=== PATIENT | female | born 1990 | race Caucasian/White ===

== ENCOUNTER 2018-01-12 17:10 | Emergency (ER) | payer SELFPAY ==
--- NOTE | 2018-01-12 17:10 | DT_ITS ---
This patient was seen during an EMR downtime January 07, 2018 - January 14, 2018. This patient may have a combination of paper and electronic documentation or all paper documentation. All documentation is viewable within the e-chart portion of [facility] for each patient visit.
== END 2018-01-12 18:17 | disposition home or self-care (01) ==
PROVIDERS: Emergency Provider Emergency Medicine
DX: G51.0 Bell's palsy (principal)
CPT/HCPCS: 99283

== ENCOUNTER → 2018-10-22 14:08 | Outpatient (CLI) | payer OTHER, SELFPAY ==
[2018-10-22 18:35] LABS: Chlamydia Trachomatis by PCR Negative (Negative); Neisserai gonorrhoeae by PCR Negative (Negative); Probe Check PASS; Sample Adequacy Control PASS; Specimen Processing Control PASS
[2018-10-29 15:27] LABS: HPV HC, High Risk Negative (Negative); HPV Reflexed? YES, CHARGE PATIENT
== END ==
PROVIDERS: Visit Provider Obstetrics & Gynecology
DX: Z12.4 Encounter for screening for malignant neoplasm of cervix (principal); Z11.3 Encounter for screening for infections with a predominantly sexual mode of transmission
CPT/HCPCS: 87491; 87591; 87624; 88175; G0145

== ENCOUNTER → 2018-11-19 09:38 | Outpatient (CLI) | payer SELFPAY ==
[2018-11-19 11:00] LABS: Color, Urine Yellow (Yellow); Glucose, Dipstick Normal (Normal); Ketone-Dipstick Negative (Negative); Leukocyte Esterase-Dipstick Negative /ul (Negative); Nitrite-Dipstick Negative (Negative); Occult Blood-Urine Negative /ul (Negative); Protein-Dipstick Negative (Negative); Urine Bilirubin Dipstick Negative (Negative); Urine Clarity Cloudy (Clear); Urine Urobilinogen Normal (Normal)
[2018-11-19 14:03] LABS: Absolute Neutrophil Count 4.6 X10^3/uL (2.0-7.7); Basophil# 0.03 X10^3/uL; Basophil% 0.5 % (0-1); Eosinophil# 0.04 X10^3/uL; Eosinophils% 0.6 % (0-5); Hematocrit 35.6 % (37-47); Hemoglobin 11.9 g/dl (12.0-15.0); Lymphocyte % 20.4 % (19-41); Mean Corp Hgb Conc 33.4 g/gl (32-36); Mean Corpuscular Hgb 31.1 pg (27.0-32.0); Monocyte# 0.38 X10^3/uL; Neutrophil # 4.61 X10^3/uL (2.7-7.7); Neutrophil % 72.3 % (47-70); Platelet Count 211 K/mm3 (150-450); RBC Distribution Width CV 13.3 % (11.6-14.6); RBC Distribution Width SD 44.8 fl (35.1-43.9); Red Blood Count 3.83 M/mm3 (4.2-5.4); White Blood Count 6.4 K/mm3 (4.4-11.0)
[2018-11-19 14:04] LABS: POSITIVE COUNT NO; POSITIVE DIFFERENTIAL NO; POSITIVE MORPHOLOGY NO
[2018-11-19 14:15] LABS: Thyroid Stim Hormone (TSH) 3.19 uIU/mL (0.358-3.74)
[2018-11-19 15:06] LABS: HIV - WCH Non-Reactive (Nonreactive); Rubella IgG > 500.0 IU/mL
[2018-11-20 11:39] LABS: HEPATITIS B SURFACE AG Negative (Negative); Hep C Antibodies <0.1 s/co ratio (0.0-0.9)
[2018-11-22 01:43] LABS: Prenatal RPR NONREACTIVE (NONREACTIVE)
== END ==
PROVIDERS: Visit Provider Obstetrics & Gynecology
DX: Z34.82 Encounter for supervision of other normal pregnancy, second trimester (principal)
CPT/HCPCS: 36415; 81002; 84443; 85025; 86703; 86762; 86803; 87340

== ENCOUNTER → 2019-02-04 08:59 | Outpatient (CLI) | payer SELFPAY ==
[2019-02-04 10:39] LABS: Glucose Challenge Gest 1H 50g 112 mg/dL (70-140); Hematocrit 33.7 % (37-47); Hemoglobin 11.3 g/dl (12.0-15.0); Mean Corp Hgb Conc 33.5 g/gl (32-36); Mean Corpuscular Hgb 31.9 pg (27.0-32.0); Mean Corpuscular Volume 95.2 fL (81-99); Mean Platelet Vol. 8.7 fl (6.2-12.0); Platelet Count 196 K/mm3 (150-450); RBC Distribution Width CV 12.7 % (11.6-14.6); RBC Distribution Width SD 43.8 fl (35.1-43.9); Red Blood Count 3.54 M/mm3 (4.2-5.4); White Blood Count 6.4 K/mm3 (4.4-11.0)
[2019-02-04 10:40] LABS: Scan Indicated on CBC? Y/N NO
== END ==
PROVIDERS: Visit Provider Obstetrics & Gynecology
DX: Z34.83 Encounter for supervision of other normal pregnancy, third trimester (principal)
CPT/HCPCS: 36415; 82950; 85027

== ENCOUNTER → 2019-04-02 11:48 | Outpatient (CLI) | payer SELFPAY ==
[2016-08-23 09:41] VITALS: BMI 27.8
== END ==
PROVIDERS: Visit Provider Obstetrics & Gynecology
DX: Z36.85 Encounter for antenatal screening for Streptococcus B (principal)
CPT/HCPCS: 87077; 87081

== ENCOUNTER 2019-04-14 00:35 | Inpatient (IN) | payer SELFPAY ==
[2019-04-14] MEDS: Lactated Ringers 1,000 ML 50 ML IV (01:30)
[2019-04-14 01:48] LABS: Absolute Lymphocyte Count 1.67 X10^3/uL (0.83-4.51); Absolute Neutrophil Count 5.3 X10^3/uL (2.0-7.7); Basophil# 0.03 X10^3/uL; Basophil% 0.4 % (0-1); Eosinophil# 0.05 X10^3/uL; Eosinophils% 0.6 % (0-5); Hematocrit 36.5 % (37-47); Hemoglobin 12.2 g/dL (12.0-15.0); Lymphocyte # 1.67 X10^3/ul (4.0); Lymphocyte % 21.5 % (19-41); Mean Corp Hgb Conc 33.4 g/dL (32-36); Mean Corpuscular Hgb 32.3 pg (27.0-32.0); Mean Corpuscular Volume 96.6 fL (81-99); Mean Platelet Vol. 8.9 fl (6.2-12.0); Monocyte# 0.72 X10^3/uL; Monocyte% 9.3 % (0-10); NRBC Flagged by Analyzer 0 % (0-5); Neutrophil # 5.25 X10^3/uL (2.7-7.7); Neutrophil % 67.8 % (47-70); Platelet Count 156 K/mm3 (150-450); RBC Distribution Width CV 12.5 % (11.6-14.6); RBC Distribution Width SD 43.7 fl (35.1-43.9); Red Blood Count 3.78 M/mm3 (4.2-5.4); White Blood Count 7.8 K/mm3 (4.4-11.0)
[2019-04-14 01:58] VITALS: BMI 24.8
[2019-04-14] MEDS: Oxytocin 30 units/NS 500 ml 30 UNITS/500 ML IV.SOLN 334 UNITS IV (02:45)
--- NOTE | 2019-04-14 02:57 | HP.PCM_ITS ---
History and Physical Date of Admission: 04/14/19 History of Present : This is a 28-year-old patient who presents for her third vaginal delivery in active labor. care has been uneventful. AGE: 28 PARITY(FPAMETL): 2 0 0 0 0 0 2 WKS GEST: 39 wks + 1 days RACHAEL: 04/20/19 Ped: [facility]. 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 decline AFP and CF tests. ASCUS Pap but HPV NEG at NOB appt Advised WNL. Repeat in 1 yr Antepartum Flow Sheet Highlights: ELB Apr 1 38 172 122/66 - - 37 JMW Mar 06 37 171 110/70 - - 37 V 2 50 -2 ELB Mar 1 35 170 110/68 tr - 35 - ELB Feb 2 33 169 120/68 - - 33 - ELB Feb 2 31 166 110/66 - - 30 - ELB Feb 2 29 166 106/62 - - 29 - ELB Jan 3 26 162 110/52 tr - 25 - ELB 17 December 4 22 159 120/62 - - 21 - ELB Nov 4 18 157 100/64 - - - V SHORT ANTEPARTUM NOTE(S): May 03Mar feeling well. GBS and LARC done. Mar doing well, GBS next visit, reviewed FM Feb see note Feb feeling well. Feb 13Jan glucola given, reviewed FM 17 December feeling well. Nov feeling well. LONG ANTEPARTUM NOTES: Apr H&P taken to OB. tkg Apr CORRECTION: GROUP B STREP NEGATIVE Doing well and advised that GBS negative. She has some mild cramping. Declines cervix check today. RTO in 1 wk for PNV. EB 03 Sep Good FM. Some cramping, no ctx's. Long dip ua 1.005, ph 7, rest is negative. Declines vag exam today. She is pre-registered. kbm 03 Sep Feeling well; reports active FM; denies UCs, VB, LOF; discussed warning signs, s/s labor, whebn to call, when to come in; RTO 1 week(s)for PNV 01 Sep GBS positive EB 31 Feb Lynette is being seen for PNV. Pt believes she has possible yeast infection for about a week now. She has had itchiness and burning in vagina. Long dip shows +leuks, trs protein, 7.0 pH, 1.010 specific gravity and all others negative. AM 31 Cecil Possible yeast with irritation for last week or so. WET PREP: negative for yeast. Empiric tx for yeast Recommended 7 d OTC cream. GyneLotrimin, monistat or equivalent. EB Feb Lynette is doing well. Good FM. 1 Hr Glucose, CBC drawn this morning. Voicing no concerns. Feb Hgb 11.3 g/dl. Glucola 112 EB 16 Apr Lynette is here for NOB nurse visit with RACHAEL 04-20-19 planning a vag del at [facility] without an epidural, using [facility] for post discharge ped care and to breastfeed. 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 Her works at a [employer]. They are pleased about the pg. Lynette has NKA to drugs, food, latex or the environment. Her diet is balanced w < two servings of caffeine daily and 6-8 glasses of water daily. She is a lifetime non smoker, occ drinks wine but not in pg and denies street drug use. She is active with her family/ children and chores and does try to walk 1+ miles in the evening. Her only meds are vitamins and calcium. Genetic Screening form completed no ting only a cousin's child with CF which is prominent on the other side of the family. Lynette declines AFP and CF tests. Warning signs in pg reviewed along w wearing seatbelt ALWAYS and low under the abdomen, lifting restriction of 25#, otc meds ok to take. increasing water intake as weather is hotter. She voices understanding and has no questions. US done today and routine labs drawn. She has a copy of What to Expect. [facility] Sibling class suggested. Enc to call w any concerns. Visit took approx 45 min. Deep [place] NEW 16 Nov O positive RI. Hgb 11.9 g/dl. EB 20 Oct Cervical cultures NEG EB 19 Oct PT is a 27 yo female, G-3 P-2 here today for her missed menses appt. PTs LMP was 07/14/2018, giving her an EDC of 04/20/2019 and making her approx 14 wks GA today. PT had a positive UPT in office today. PT denies any problems or concerns at this time. PT had 2 previous NVD deliveries. Pt given new paperwork. PT is currently taking a PNV and calcium. dg PRIOR HISTORY: 1 03/03/15 Male 39 wks 8 hrs Vag 2 08/23/16 Female 39 wks 6 hrs Vag Number 1 baby complications-->: NO Number 2 baby complications-->: NO ALLERGIES: NKDA MEDICATIONS: Calcium 500 500 mg calcium (1,250 mg) tablet 27-0.8 mg tablet PROGRESS NOTES: 01/18/15- Doing well no complaints. + movement. REVIEW OF SYSTEMS: GENERAL - Denies fever, or chills SKIN - Denies skin changes EYES - Denies visual changes EARS - Denies difficulty hearing NOSE - Denies nasal congestion or bleeding MOUTH - Denies sore throat or difficulty swallowing NECK - Denies pain or swelling RESPIRATORY - Denies shortness of breath or wheezing CARDIOVASCULAR - Denies palpitations or chest pain GASTROINTESTINAL - Denies nausea, vomiting, diarrhea, constipation GENITOURINARY - amenorrhea MUSCULOSKELETAL - Denies joint or muscle pain NEUROLOGICAL - Denies localized numbness or weakness PSYCHIATRIC - Denies depression or anxiety ENDOCRINE - Denies heat or cold intolerance, weight loss or gain HEMATO-IMMUNOLOGIC - Denies excesive bleeding with cuts PAST HISTORY: Breast/Ovarian/Colon Cancers - Aunt had Breast Cancer approximately age 40-50 Infections - Chicken pox and [place] Illnesses - none Accidents - no injuries of consequence History of Abnormal PAPS - Denies Hospitalizations - Childbirth SURGICAL HISTORY: 1. 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 Illicit Drug Use - denies use of street drugs Sexual Activity - single sexual partner and Place of - [place] Spouse-Sig Other Name - Hans Spouse-Sig Other Occupation - [employer] Spouse-Sig Other Phone No - [phone] Children Name(s) - Trini Stafford Control - condoms PHYSICAL EXAMINATION Height- 67.50 inch CONSTITUTIONAL - NAD, well nourished, and well developed HEENT - Normocephalic, PERRLA, EOMI NECK - no nuchal rigidity LUNGS - clear to auscultation CARDIAC - normal s1, normal s2, no s3 BREAST - no dominant masses, no tenderness, no axillary adenopathy, no nipple discharge and no skin changes ABDOMEN - Uterus enlarged FHT in 160s EXTREMITIES - No edema or calf tenderness NEUROLOGICAL - Cranial nerves II-XII grossly intact PSYCHIATRIC - A and O to time, place, person, mood and affect PAP SMEAR - done and GC and Chlamydia done DETAILED PELVIC EXAM External Genitial Vagina - non-tender without lesions Urethra/Urethral Meatus - non-tender Bladder - non-tender Vagina - vaginal sutton are pink and moist without loss of rugae and no evidence of atropy Adnexa - non-diagnostic, compromised by pelvic mass Labs for : LYNETTE PIKE since 07/24/2018 ORDER DATEIN DESCRIPTION VALUE UNITS RANGE A+ COMMENT CBC W/DIFF, AUTOMATED 04/14/19 NOTE Original Ordering Provider: Leo Greer WBC 7.8 K/mm3 4.4-11.0 RBC 3.78w M/mm3 4.2-5.4 L HGB 12.2 g/dL 12.0-15.0 HCT 36.5 % 37-47 L MCV 96.6 fL 81-99 MCH 32.3 pg 27.0-32.0 H MCHC 33.4 g/dL 32-36 RDW CV 12.5 % 11.6-14.6 RDW SD 43.7 fl 35.1-43.9 PLT 156 K/mm3 150-450 MPV 8.9 fl 6.2-12.0 NEUT% 67.8 % 47-70 LY% 21.5 % 19-41 MONO% 9.3 % 0-10 EO% 0.6 % 0-5 BASO% 0.4 % 0-1 IM GRAN % 0.400 % 0.0-0.9 IG% - Immature Granulocytes (promyelocytes, myelocytes and metamyelocytes) > 1% indicates that a LEFT SHIFT is Present. ABSOLUTE NEUT 5.3 X10 3/uL 2.0-7.7 ABSOLUTE LYMPH 1.67 X10 3/uL 0.83-4.51 NRBC, FLAGGED 0 % 0-5 CULTURE, GROUP B STREPTOCOCCUS 04/02/19 NOTE Original Ordering Provider: Trish Moctezuma Comments: VAGINAL/RECTAL NAIF Culture Group B Beta Streptococcus is not isolated. Reviewed by TRISH Reviewed by TRISH CBC-COMPLETE BLOOD CNT NO DIFF 02/04/19 NOTE Original Ordering Provider: Trish Moctezuma WBC 6.4 K/mm3 4.4-11.0 RBC 3.54 M/mm3 4.2-5.4 L HGB 11.3 g/dl 12.0-15.0 L HCT 33.7 % 37-47 L w MCV 95.2 fL 81-99 MCH 31.9 pg 27.0-32.0 MCHC 33.5 g/gl 32-36 RDW CV 12.7 % 11.6-14.6 RDW SD 43.8 fl 35.1-43.9 PLT 196 K/mm3 150-450 MPV 8.7 fl 6.2-12.0 Reviewed by TRISH GLUCOSE CHALLENGE GEST 1H 50G 02/04/19 NOTE Original Ordering Provider: Trish Moctezuma GLU GEST 50G 1H 112 mg/dL 70-140 Reviewed by TRISH RPR 11/19/18 NOTE Original Ordering Provider: Trish Moctezuma RPR NONREACTIVE NONREACTIVE Reviewed by TRISH HEPATITIS C ANTIBODIES 11/19/18 NOTE Original Ordering Provider: Trish Moctezuma HEP C AB <0.1 s/co ratio 0.0-0.9 Negative: < 0.8 Indeterminate: 0.8 - 0.9 Positive: > 0.9 The CDC recommends that a positive HCV antibody result be followed up with a HCV Nucleic Acid Amplification test (260935). Reviewed by TRISH HEPATITIS B SURFACE AG 11/19/18 NOTE Original Ordering Provider: Trish Moctezuma HB SURF AG Negative Negative Performed at: [address] [id number] [employer]: Scooby Garza PhD, Phone: [phone] Reviewed by TRISH HIV - [facility] 11/19/18 NOTE Original Ordering Provider: Trish Moctezuma HIV - [facility] Non-Reactive Nonreactive Reviewed by TRISH RUBELLA IGG 11/19/18 NOTE Original Ordering Provider: Trish Moctezuma RUBELLA IGG > 500.0 IU/mL Antibody results Interpretation of Immune Status < 5 IU/ml Presumed Non-immune 5 - < 10 IU/ml Equivocal > or = 10 IU/ml Presumed Immune Reviewed by TRISH T AND S-NO CHARGE W/PNP 11/19/18 Reason for Type AND Screen/Red Cells: Surgery? [facility]~[address] [place], [address]~ BLOOD TYPE GEL O POSITIVE N AB SCREEN GEL NEGATIVE N Reviewed by TRISH THYROID STIM HORMONE (TSH) 11/19/18 NOTE Original Ordering Provider: Trish Moctezuma TSH 3.19 uIU/mL 0.358-3.74 Reviewed by TRISH CBC W/DIFF, AUTOMATED 11/19/18 NOTE Original Ordering Provider: Trish Moctezuma WBC 6.4 K/mm3 4.4-11.0 RBC 3.83 M/mm3 4.2-5.4 L HGB 11.9 g/dl 12.0-15.0 L HCT 35.6 % 37-47 L MCV 93.0 fL 81-99 MCH 31.1 pg 27.0-32.0 MCHC 33.4 g/gl 32-36 RDW CV 13.3 % 11.6-14.6 RDW SD 44.8 fl 35.1-43.9 H PLT 211 K/mm3 150-450 MPV 9.0 fl 6.2-12.0 NEUT% 72.3 % 47-70 H LY% 20.4 % 19-41 MONO% 6.0 % 0-10 EO% 0.6 % 0-5 BASO% 0.5 % 0-1 IM GRAN % 0.200 % 0.0-0.9 IG% - Immature Granulocytes (promyelocytes, myelocytes and metamyelocytes) > 1% indicates that a LEFT SHIFT is Present. ABSOLUTE NEUT 4.6 X10 3/uL 2.0-7.7 ABSOLUTE LYMPH 1.30 X10 3/ul 0.83-4.51 Reviewed by TRISH URINALYSIS, ROUTINE (DIPSTICK) 11/19/18 NOTE Original Ordering Provider: Trish Moctezuma COLOR Yellow Yellow CLARITY Cloudy Clear GLUCOSE, UR Normal mg/dl Normal BILIRUBIN URINE Negative mg/dL Negative KETONE UR Negative mg/dl Negative SP.GR. DIPSTX 1.010 1.002-1.030 PH UR 8.0 5.0 - 8.0 PROT DIPSTX Negative mg/dl Negative UROBILI Normal mg/dl Normal NITRITE UR Negative Negative OCCULT BLOOD-UR Negative /ul Negative LEUK ESTERASE Negative /ul Negative Reviewed by TRISH LA I-G W/RFX HRHPV 10/22/18 NOTE Original Ordering Provider: Trish Moctezuma DIAGN . H EPITHELIAL CELL ABNORMALITY. ATYPICAL SQUAMOUS CELLS OF UNDETERMINED SIGNIFICANCE (ASC-US). ADEQ . Satisfactory for evaluation. Endocervical and/or squamous metaplastic cells (endocervical component) are present. PERFORM . James Davila, [employer] Furniture (ASCP) SIGN . Cydney Mann MD, Pathologist PATH PROV. ICD9 . R87.610 TEST METHOD . This liquid based ThinPrep(R) pap test was screened with the use of an image guided system. COMM . . PAPSMR . The Pap smear is a screening test designed to aid in the detection of premalignant and malignant conditions of the uterine cervix. It is not a diagnostic procedure and should not be used as the sole means of detecting cervical cancer. Both false-positive and false-negative reports do occur. HPV RFLX . See below for HPV testing results. HPV HC,HGH RISK Negative Negative This high-risk HPV test detects thirteen high-risk types (16/18/31/33/35/39/45/51/52/56/58/59/68) without differentiation. Performed at: - [facility] [id number] [employer]: Mercedes Bishop MD, Phone: [phone] Performed at: = - [facility] [address] [id number] [employer]: Mercedes Bishop MD, Phone: [phone] Reviewed by TRISH RAY/MAIRA [facility] BY PCR 10/22/18 NOTE Original Ordering Provider: Trish [facility] PCR Negative Negative NG BY PCR Negative Negative Reviewed by TRISH Impression/Plan: 39+ week intrauterine in active labor. Anticipate spontaneous vaginal delivery.
--- NOTE | 2019-04-14 03:07 | OP.PCM_ITS ---
Vaginal Delivery Maternal Presentation: Active Labor Amniotic Membrane Rupture Type: Artificial Amniotic Fluid Description: Clear Final RACHAEL: 04/20/19 Gestational age: 39 Weeks and 1 Days Date of Procedure: 04/14/19 Pre-Operative Diagnosis: IUP Post-Operative Diagnosis: IUP Surgery/ Procedure Performed: Spontaneous Vaginal Delivery Type of Anesthesia: Local with 1% lidocaine Description of Procedure: Spontaneous vaginal delivery of a viable male infant with Apgars of 8/10 from an occiput anterior presentation with clear amniotic fluid and normal three-vessel placenta. Baby wrapped in cord x3 around the body. No episiotomy. First- degree midline laceration repaired with 3-0 Rapide suture. Sponges okay. Delivery physician: Leo Greer MD. Presentation: Vertex Placental Delivery Description: Spontaneous Placenta Disposition: [facility] Cord Vessel Description: 3 Vessels Cord Entanglement: - - Around body x3 tight Estimated Blood Loss: 250 cc A gender: Male (1 minute): 8 (5 minute): 10 Episiotomy Description: None Laceration: Midline, 1st degree Medications given after delivery: IV Pitocin Complications: None
--- NOTE | 2019-04-14 03:10 | DCINST_ITS ---
Discharge Diet: No Restrictions Discharge Activity: May Shower, May Take a Tub Bath May resume sexual activity in: 4-6 weeks Additional Activity Instructions:: Nothing in the vagina for 4-6 weeks. You may return to work/school in 6 weeks. Call your doctor if you observe: Fever of 101 or Higher, Inability to urinate, Inability to have a bowel movement, Using more than one pad per hour Additional Instructions: If you experience any of the following, contact your healthcare provider. * Bleeding that soaks a pad every hour for 2 hours * Fever 100.4 or higher * Unrelieved incision or abdominal pain * Swelling, redness, discharge or bleeding from your incision or episiotomy site * Your incision begins to separate * Problems urinating (including inability to urinate or burning while urinating). * Visual changes * Severe headache * Flu-like symptoms * Pain or redness in one of both of your breasts * Pain, warmth, tenderness or swelling in your legs, especially the calf area * Frequent nausea and vomiting * Symptoms of depression or anxiety If you experience any of the following, call 911 or go to the nearest Emergency Room. * Chest pain * Problems breathing * Seizure activity * Partial or complete paralysis of a body part, slurred speech, weakness or drooping of the face, or a sudden inability to walk or hold your balance Allergies/Adverse Reactions: Allergies No Known Allergies Allergy (Verified 04/14/19 01:56) Medications to take at Discharge RX: Calcium Carbonate [Calcium] 500 mg PO BID 03/03/15 RX: Vits [Prenatabs FA ] 1 tablet PO DAILY 03/03/15 RX: Ibuprofen 600 mg PO 4X/DAY PRN #30 tablet 08/23/16 Please Follow Up With: Leo Greer MD When: Call to make an appointment with your doctor in 6 weeks. Primary Care Physician: Care Physician,No Primary [Primary Care Provider] - Test Results: Test results from this visit will be discussed in further detail at your follow- up appointment, if applicable.
[2019-04-14] MEDS: Ibuprofen 600 MG Tablet PO ×2 (04:20→13:59)
[2019-04-14] MEDS: 0.9% Saline Lock 10 ML Syringe IV (05:20)
[2019-04-14 05:25] VITALS: BP 110/63; PULSE 92; RESP 16; TEMP 36.8
--- NOTE | 2019-04-14 07:39 | PN.OBGYN_ITS ---
Subjective: Day of delivery Doing well. breast feeding. Got some rest - Physical Exam General: Alert, Oriented x3, Cooperative, No apparent distress HEENT: Atraumatic, EOMI Neck: Supple Psych/Mental Status: Normal Affect Vital Signs Temp Pulse Resp BP 98.3 F 92 16 110/63 04/14/19 05:25 04/14/19 05:25 04/14/19 05:25 04/14/19 05:25 Weight: 78.471 kg Body Mass Index (BMI) 24.8 Intake and Output for Last 24 Hours 04/12/19 04/13/19 04/14/19 23:59 23:59 23:59 Intake Total 562.5 / 562.5 Output Total 400 / 400 Balance 162.5 / 162.5 Laboratory Tests Past 24 Hrs 04/14/19 04/14/19 01:30 01:30 WBC 7.8 RBC 3.78 L Hgb 12.2 Hct 36.5 L MCV 96.6 MCH 32.3 H MCHC 33.4 RDW Std Deviation 43.7 RDW Coeff of Ramsey 12.5 Plt Count 156 MPV 8.9 Immature Gran % (Auto) 0.400 Neut % (Auto) 67.8 Lymph % (Auto) 21.5 [place] % (Auto) 9.3 Eos % (Auto) 0.6 Baso % (Auto) 0.4 Absolute Neuts (auto) 5.3 Absolute Lymphs (auto) 1.67 Nucleated RBC % 0 Blood Type O POSITIVE Antibody Screen NEGATIVE Medical Necessity - Tobacco Use Smoking Status: Never smoker Assessment/Plan Day of delivery Stable pp. Continue routine pp care.
[2019-04-14 09:00] VITALS: BP 113/69; PULSE 69; RESP 16; TEMP 37.1
[2019-04-14 11:30] VITALS: BP 120/69; PULSE 81; RESP 16; TEMP 36.9
[2019-04-14 16:00] VITALS: BP 115/61; PULSE 64; RESP 16; TEMP 36.8
[2019-04-14 20:30] VITALS: BP 118/70; PULSE 70; RESP 16; TEMP 36.8; O2SAT 98
[2019-04-15 01:30] VITALS: BP 111/55; PULSE 66; RESP 16; TEMP 36.6; O2SAT 98
--- NOTE | 2019-04-15 07:54 | PCM.PN.OB ---
Subjective: PPD#1 Doing well. Breast feeding. Plans to go home toady if baby is released. - Physical Exam General: Alert, Oriented x3, Cooperative, No apparent distress HEENT: Atraumatic, EOMI Neck: Supple Abdomen: Soft - Fundus firm NT at umbilicus Neurological: Cranial nerves II-XII grossly intact Psych/Mental Status: Normal Affect Vital Signs Temp Pulse Resp BP Pulse Ox 97.9 F 66 16 111/55 L 98 04/15/19 01:30 04/15/19 01:30 04/15/19 01:30 04/15/19 01:30 04/15/19 01:30 Oxygen Delivery Method Room Air Weight: 78.471 kg Body Mass Index (BMI) 24.8 Intake and Output for Last 24 Hours 04/13/19 04/14/19 04/15/19 23:59 23:59 23:59 Intake Total 562.5 / 562.5 Output Total 400 / 400 Balance 162.5 / 162.5 Medical Necessity - Tobacco Use Smoking Status: Never smoker Assessment/Plan PPD#1 Stable pp. Dischg home today. RTO in 6 wk for pp check.
[2019-04-15 08:00] VITALS: BP 113/75; PULSE 78; RESP 16; TEMP 36.8; O2SAT 98
[2019-04-15 14:45] VITALS: BP 107/65; PULSE 77; RESP 16; TEMP 37.1; O2SAT 98
== END 2019-04-15 16:45 | disposition home or self-care (01) | DRG 807 ==
PROVIDERS: Admitting Provider Obstetrics & Gynecology; Referring Provider Obstetrics & Gynecology; Visit Provider Obstetrics & Gynecology
DX: O69.2XX0 Labor and delivery complicated by other cord entanglement, with compression, not applicable or unspecified (principal); Z37.0 Single live birth; O70.0 First degree perineal laceration during delivery; Z3A.39 39 weeks gestation of pregnancy
CPT/HCPCS: 59025; 85025; 86850; 86900; 86901; 99218; J7120; A4216; G0378